=== PATIENT | female | born 1965 | race Caucasian/White ===

== ENCOUNTER → 2021-03-26 | Outpatient (CLI) | payer OTHER ==
[2021-03-26 10:23] LABS: ABSOLUTE BASOPHILS 0.1 thou/uL (0.0-0.2); ABSOLUTE EOSINOPHILS 0.2 thou/uL (0.0-0.7); ABSOLUTE LYMPHOCYTES 1.8 thou/uL (0.8-5.3); ABSOLUTE MONOCYTES 0.6 thou/uL (0.0-1.2); ABSOLUTE NEUTROPHILS 2.4 thou/uL (1.6-8.1); BASOPHILS 1.1 %; EOSINOPHILS 4.8 %; HEMATOCRIT 39.7 % (37.0-47.0); HEMOGLOBIN 13.6 gm/dL (12.0-15.0); LYMPHOCYTES 34.8 %; MCH 30.5 pg (26.0-34.0); MCHC 34.3 g/dL (28.0-37.0); MCV 89.1 fL (80.0-100.0); MONOCYTES 11.2 %; MPV 8.7 fl. (7.2-11.1); NUCLEATED RBCS 0 /100WBC; PLATELET COUNT* 244 thou/uL (150-400); POLYS 48.1 %; RBC 4.46 mil/uL (4.20-5.00); RDW-CV 13.4 % (10.5-14.5)
[2021-03-26 10:39] LABS: ALBUMIN 4.1 g/dL (3.4-5.0); ALKALINE PHOSPHATASE 133 U/L (46-116); ANION GAP 8 mmol/L (7-16); BUN 15 mg/dL (7-18); CALCIUM 9.6 mg/dL (8.5-10.1); CHLORIDE 106 mmol/L (98-107); CHOLESTEROL 232 mg/dL (<200); CO2 29 mmol/L (21-32); CREATININE 0.8 mg/dL (0.6-1.3); GLUCOSE 112 mg/dL (70-99); HDL CHOLESTEROL 56 mg/dL (>40); LDL CHOLESTEROL 157 mg/dL (<100); POTASSIUM 4.8 mmol/L (3.5-5.1); SGOT 20 U/L (15-37); SGPT 29 U/L (30-65); SODIUM 143 mmol/L (136-145); TC:HDL 4.1 Ratio (Not establshd); TOTAL BILIRUBIN 0.4 mg/dL (<0.1-1.0); TRIGLYCERIDE 95 mg/dL (<150); VLDL 19 mg/dL (<40)
[2021-03-26 10:47] LABS: SERUM ASSESSMENT Clear
== END ==
LOC: M.LAB 10:07
PROVIDERS: ATTEND Family Medicine
DX: Z00.00 Encounter for general adult medical examination without abnormal findings (principal); E55.9 Vitamin D deficiency, unspecified

== ENCOUNTER → 2021-04-11 | Outpatient (CLI) | payer OTHER ==
[2021-04-12 02:06] LABS: GLYCOHEMOGLOBIN (HGB A1C) 5.8 % (4.8-5.6)
== END ==
LOC: M.LAB 10:19
PROVIDERS: ATTEND Family Medicine
DX: R73.01 Impaired fasting glucose (principal)